=== PATIENT | male | born 1995 | race Hispanic/Latino ===

== ENCOUNTER 2019-09-28 10:41 | Emergency (ER) | payer SELFPAY ==
--- NOTE | 2019-09-28 11:36 | RAD ---
Exam: Chest one view HISTORY:Irregular heartbeat. Comparison: None FINDINGS: Cardiac silhouette: Normal Aorta: Unremarkable Pulmonary vessels: Normal Costophrenic angles: Clear LUNGS: No masses or consolidation. Pneumothorax: None Osseous abnormalities: None IMPRESSION: No acute cardiopulmonary process.
[2019-09-28 11:40] LABS: #Eosinphils 0.1 thou/uL (0.0-0.7); #Lymphocytes 1.3 thou/uL (1.20-3.40); #Monocytes 0.8 thou/uL (0.11-0.59); #Neutrophils 4.6 thou/uL (1.40-6.50); %Basophils 0.4 % (0.0-1.0); %Eosinophils 1.4 % (0.0-10.0); %Lymphocytes 19.1 % (21.0-51.0); %Monocytes 11.3 % (0.0-10.0); %Neutrophils 67.7 % (42.0-75.0); Hemoglobin 15.9 g/dL (14.0-18.0); Mean Corpuscular HGB CONC 33.6 g/dL (32.0-36.0); Mean Corpuscular Hemoglobin 31.1 pg (27.0-31.0); Mean Corpuscular Volume 92.6 fL (78.0-98.0); Mean Platelet Volume 8.6 fL (7.4-10.4); Platelet Count 233 thou/uL (130-400); RBC Distribution Width 11.4 % (11.5-14.5); White Blood Cell (WBC) Count 6.8 thou/uL (4.8-10.8)
[2019-09-28 12:04] LABS: ALT (SGPT) 32 U/L (8-55); AST (SGOT) 21 U/L (5-34); Albumin 4.2 g/dL (3.5-5.0); Alkaline Phosphatase 54 U/L (40-110); Anion Gap 14 mmol/L (10-20); BUN (Urea Nitrogen) 8 mg/dL (8.9-20.6); Bilirubin, Total 0.8 mg/dL (0.2-1.2); Calc. Creatinine Clearance 0 mL/min (70-130); Calcium 9.2 mg/dL (7.8-10.44); Carbon Dioxide 22 mmol/L (22-29); Chloride 104 mmol/L (98-107); Estimated GFR-MDRD Greater than 90; Globulin 3.1 g/dL (2.4-3.5); Glucose 126 mg/dL (70-105); Potassium 3.8 mmol/L (3.5-5.1); Protein, Total 7.3 g/dL (6.0-8.3); Sodium 136 mmol/L (136-145)
--- NOTE | 2019-10-06 15:32 | EKG ---
Test Reason : ANXIETY Blood Pressure : / mmHG Vent. Rate : 060 BPM Atrial Rate : 060 BPM P-R Int : 142 ms QRS Dur : 090 ms QT Int : 400 ms P-R-T Axes : 014 030 022 degrees QTc Int : 400 ms Normal sinus rhythm with sinus arrhythmia Early repolarization Normal ECG Confirmed by JANN ZAPATA DO ([id number]), acquisition editor KOBE QUINTANA ([id number]) on 10/06/2019 3:32:44 PM Referred By: Confirmed By:JANN ZAPATA DO
== END 2019-09-28 12:58 | disposition home or self-care (01) ==
LOC: ERS 10:41
DX: F41.9 Anxiety disorder, unspecified (principal); R07.89 Other chest pain; F17.210 Nicotine dependence, cigarettes, uncomplicated
CPT/HCPCS: 71045; 80053; 84484; 85025; 93005

== ENCOUNTER 2021-01-04 09:17 | Emergency (ER) | payer SELFPAY ==
[2021-01-04] MEDS ORDERED: Acetaminophen 500 MG TAB ONE ×2 (10:17)
[2021-01-04] MEDS ORDERED: Albuterol 200 PUFF (6.7GM INHALER) ONE (10:25)
[2021-01-04] MEDS ORDERED: Dexamethasone 10 MG/ML VIAL ONE (11:08)
[2021-01-04] MEDS ORDERED: Dexamethasone 4 MG TAB ONE (11:10)
[2021-01-04 15:55] LABS: SARS-CoV-2 PCR by NAA Not Detected (NotDetected)
== END 2021-01-04 11:23 | disposition home or self-care (01) ==
LOC: ERS 09:17
DX: H66.93 Otitis media, unspecified, bilateral (principal); J02.9 Acute pharyngitis, unspecified; Z20.822 Contact with and (suspected) exposure to COVID-19; R09.81 Nasal congestion; F17.210 Nicotine dependence, cigarettes, uncomplicated
CPT/HCPCS: 71045; 87804; 94664; J1100; J8540; U0003; U0005